=== PATIENT | female | born 1975 | race African-American/Black ===

== ENCOUNTER 2018-06-22 17:45 | Emergency (ER) | payer OTHER ==
[~2018-06-22] VITALS: Ht 162.6 cm; Wt 72.6 kg
[~2018-06-22 17:45] MED LIST: NAPROSYN500 MG PO; NORFLEX100 MG PO
[2018-06-22] MEDS ORDERED: VENTOLIN HFA 1818 GM INH (18:13)
[2018-06-22 19:11] VITALS: BP 106/74
== END 2018-06-22 19:27 | disposition home or self-care (01) ==
LOC: ER 17:45
DX: J06.9 Acute upper respiratory infection, unspecified (principal); B34.9 Viral infection, unspecified; R19.7 Diarrhea, unspecified; J45.909 Unspecified asthma, uncomplicated; Z87.891 Personal history of nicotine dependence; Z90.49 Acquired absence of other specified parts of digestive tract